=== PATIENT | female | born 1980 | race Asian ===

== ENCOUNTER 2018-03-04 01:04 | Emergency (ER) | payer MEDICAID ==
[~2018-03-04] VITALS: Ht 172.7 cm; Wt 68.0 kg
--- NOTE | 2018-03-04 02:34 | NUR ---
PT NOTED TO BE AAOX4, RESP EVEN AND UNLABORED,VSS, NO S/S OF DISTRESS, PT NOTED TO HAVE STEADY GAIT WHILE AMBULATING. PT RESTING IN BED.
[2018-03-04 02:37] VITALS: BP 110/55
--- NOTE | 2018-03-04 04:45 | NUR ---
Patient eloped from facility. ER MD notified. PT LAST SEEN [id number]
== END 2018-03-04 05:28 | disposition left against medical advice (07) ==
LOC: ER 01:06
DX: F10.129 Alcohol abuse with intoxication, unspecified (principal)
CPT/HCPCS: A4606; Z7610